=== PATIENT | male | born 1980 | race Caucasian/White ===

== ENCOUNTER → 2017-03-13 | Outpatient (CLI) | payer BC ==
--- NOTE | 2017-03-13 14:05 | US ---
EXAMINATION TYPE: US venous doppler duplex LE LT DATE OF EXAM: 03/13/2017 1:37 PM COMPARISON: NONE CLINICAL HISTORY: M79.669 PAIN LEFT LOWER LEG. Pain left calf x 1 day SIDE PERFORMED: left TECHNIQUE: The lower extremity deep venous system is examined utilizing real time linear array sonog aracely with graded compression, doppler sonography and color-flow sonography. VESSELS IMAGED: External Iliac Vein (EIV) Common Femoral Vein Deep Femoral Vein Greater Saphenous Vein * Femoral Vein Popliteal Vein Small Saphenous Vein * Proximal Calf Veins (* superficial vessels) Left Leg: No evidence of DVT as visualized IMPRESSION: Grayscale, color doppler, spectral doppler imaging performed of the deep veins of the lo wer extremities. There is normal flow, compressibility, vascular waveforms bilaterally.
== END | disposition home or self-care (01) ==
LOC: RADUSWWP 12:46
PROVIDERS: ATTEND Family Medicine
DX: M79.669 Pain in unspecified lower leg (principal)

== ENCOUNTER → 2018-10-02 | Outpatient (CLI) | payer BC ==
--- NOTE | 2018-10-02 10:10 | XR ---
EXAM TYPE: LUMBAR SPINE X RAY SERIES COMPARISON: NONE HISTORY: Lower back pain TECHNIQUE: 3 views are submitted. FINDINGS: Alignment is anatomic. The pedicles are intact. The transverse processes are intact. There is no s pondylolysis or spondylolisthesis. Hypertrophic and degenerative changes spine. There is facet arthr opathy. IMPRESSION: 1. Multilevel hypertrophic change and degenerative disc disease. Consider follow-up follow-up MRI.
== END ==
LOC: RADXRMAIN 09:31
PROVIDERS: ATTEND Chiropractor
DX: M51.36 Other intervertebral disc degeneration, lumbar region (principal)
CPT/HCPCS: 72100

== ENCOUNTER 2019-09-03 17:34 | Emergency (ER) | payer BC ==
--- NOTE | 2019-09-03 18:37 | ED ---
General Adult HPI - General Chief complaint: Neuro Symptoms/Deficit Stated complaint: Vision problems Time Seen by Provider: 09/03/19 18:00 Source: patient Mode of arrival: ambulatory Limitations: no limitations - History of Present Illness Initial comments: 38-year-old male patient with a benign past medical history presents to the emergency department today for evaluation of visual disturbance. Patient states that he had a wavy lines in his left peripheral vision last approximately an hour. Patient states he developed a mild headache afterward. States he is currently symptom-free. He denies any blurry or double vision. Denies pain to the eyes. Denies numbness, tingling, or weakness to his extremities. Patient states that he does have history of thin redness so presented here for further evaluation. He does see an technical services specialist regularly. Patient denies any recent rash, fever, chills, shortness breath, chest pain, abdominal pain, nausea, vomiting, diarrhea, constipation, back pain, dizziness, weakness, hematuria, dysuria, urinary urgency, urinary frequency, or any other complaints. - Related Data Allergies Allergy/AdvReac Type Severity Reaction Status Date / Time No Known Allergies Allergy Verified 09/03/19 17:49 Review of Systems ROS Statement: Those systems with pertinent positive or pertinent negative responses have been documented in the HPI. ROS Other: All systems not noted in ROS Statement are negative. Past Medical History Past Medical History: No Reported History History of Any Multi-Drug Resistant Organisms: None Reported Additional Past Surgical History / Comment(s): partial finger amp rt hand 2nd digit Past Psychological History: No Psychological Hx Reported Smoking Status: Never smoker Past Alcohol Use History: None Reported Past Drug Use History: None Reported General Exam Limitations: no limitations General appearance: alert, in no apparent distress, other (This is a well- developed, well-nourished adult male patient in no acute distress. Vital signs upon presentation are temperature 98.5F, pulse 89, respirations 18, blood pressure 134/68, pulse ox 98% on room air.) Eye exam: Present: normal appearance, PERRL, EOMI, other (Bilateral retina unremarkable with ophthalmoscope examination). Absent: scleral icterus, conjunctival injection, nystagmus, periorbital swelling ENT exam: Present: normal exam, normal oropharynx, mucous membranes moist Respiratory exam: Present: normal lung sounds bilaterally. Absent: respiratory distress, wheezes, rales, rhonchi, stridor Cardiovascular Exam: Present: regular rate, normal rhythm, normal heart sounds. Absent: systolic murmur, diastolic murmur, rubs, gallop, clicks Neurological exam: Present: alert, oriented X3, CN II-XII intact Psychiatric exam: Present: normal affect, normal mood Skin exam: Present: warm, dry, intact, normal color. Absent: rash Course Vital Signs 09/03/19 09/03/19 17:46 19:42 Temperature 98.5 F 98.1 F Pulse Rate 89 86 Respiratory 18 16 Rate Blood Pressure 134/68 136/70 O2 Sat by Pulse 98 98 Oximetry Medical Decision Making - Medical Decision Making 38-year-old male patient presented to the emergency department today for evaluation of visual disturbance to the left eye. Patient physical exam is unremarkable. Neurologically intact with no focal deficits. Funduscopic examination with ophthalmoscope was unremarkable. Visual acuity was 20/20 in the left eye and 20/15 in the right eye. Patient denies any current symptoms. Patient will be discharged at this time to follow-up with ophthalmology in the morning. Return parameters discussed in detail. He verbalizes understanding and agrees with this plan. Disposition Clinical Impression: Visual disturbance Disposition: HOME SELF-CARE Condition: Good Instructions (If sedation given, give patient instructions): Blurred Vision (ED) Additional Instructions: Follow up with your technical services specialist for recheck as soon as possible. Return to the emergency department immediately for any new, worsening, or concerning symptoms. Is patient prescribed a controlled substance at d/c from ED?: No Referrals: Jalen Ayon MD [Primary Care Provider] - 1-2 days Gianni Burgess MD [STAFF PHYSICIAN] - 1-2 days Time of Disposition: 19:08
[2019-09-03 19:43] VITALS: BP 136/70; PULSE 86; RESP 16; TEMP 98.1
== END 2019-09-03 19:42 | disposition home or self-care (01) ==
LOC: EC 17:34
DX: H53.9 Unspecified visual disturbance (principal)
CPT/HCPCS: 99283